=== PATIENT | male | born 1975 | race Caucasian/White ===

== ENCOUNTER 2025-02-09 16:23 | Emergency (ER) | payer SELFPAY ==
[~2025-02-09] VITALS: Ht 167.6 cm; Wt 91.0 kg
[2025-02-09 16:26] VITALS: O2SAT 98
[2025-02-09] MEDS: KETOROLAC 30MG/ML VIAL IV STA (18:22)
[2025-02-09 18:31] LABS: BASOPHILS % 0.6 % (0.0-2.0); DIFFERENTIAL COMMENT 0; EOSINOPHILS % 0.4 % (0.0-5.0); HEMATOCRIT. 21.7 % (42.0-52.0); MEAN CORPUSCULAR HEMOGLOBIN 27.5 pg (28.0-32.0); MEAN CORPUSCULAR HGB CONC 31.8 g/dL (31.0-37.0); MEAN CORPUSCULAR VOLUME 86.7 fL (80.0-94.0); MEAN PLATELET VOLUME 7.6 fl (7.4-10.4); MONOCYTES % 6.6 % (2.0-8.0); NEUTROPHILS % 79.4 % (40.0-76.0); PLATELET 109 x1000/uL (130-400); RED CELL DISTRIBUTION WIDTH 13.9 % (11.6-14.6); WHITE BLOOD COUNT 3.6 x1000/uL (4.5-11.0)
[2025-02-09 18:37] LABS: CHLORIDE 128 mEq/L (98-107); SODIUM 152 mEq/L (136-145)
[2025-02-09 18:38] LABS: CARBON DIOXIDE 14 mEq/L (21-32); HEMOGLOBIN. 6.9 g/dL (14.0-18.0)
[2025-02-09] MEDS: SODIUM CHLORIDE 0.9% 1,000 ML IV ONE (18:40)
[2025-02-09 18:43] LABS: CREATININE 0.2 mg/dL (0.6-1.3); GLUCOSE 71 mg/dL (70-105); UREA NITROGEN BLOOD < 5 mg/dL (9-23)
[2025-02-09 18:45] LABS: ALANINE AMINOTRANSFERASE 18 IU/L (10-49); ALBUMIN 1.7 g/dL (3.2-4.8); ASPARTATE AMINOTRANSFERASE 12 IU/L (<34); BILIRUBIN DIRECT < 0.1 mg/dL (<=3.0); BILIRUBIN TOTAL 0.2 mg/dL (0.1-1.0); PROTEIN TOTAL 2.8 g/dL (6.0-8.3)
[2025-02-09 18:47] LABS: TROPONIN I HIGH SENSITIVITY < 4 ng/L (3.0-53)
[2025-02-09 18:52] LABS: POTASSIUM 1.5 mEq/L (3.5-5.1)
[2025-02-09 18:53] LABS: CALCIUM 3.7 mg/dL (8.7-10.4)
[2025-02-09] MEDS ORDERED: MAGNESIUM 2 G PREMIX 50 ML IV ONE (19:15)
[2025-02-09] MEDS ORDERED: CALCIUM GLUCONATE 100MG/ML 10ML VIAL IV ONE (19:15)
[2025-02-09] MEDS ORDERED: KCL 20MEQ/100ML PREMIX 100 ML IV ONE (19:15)
[2025-02-09 20:10] VITALS: BP 167/106; PULSE 85; RESP 26; TEMP 36.8; O2SAT 97
[2025-02-09] MEDS ORDERED: IOHEXOL-300 100 ML BOTTLE ONE (23:42)
== END 2025-02-09 21:27 | disposition left against medical advice (07) ==
LOC: ER 16:23
DX: D64.9 Anemia, unspecified (principal); E83.51 Hypocalcemia; E87.6 Hypokalemia; E83.42 Hypomagnesemia; N28.89 Other specified disorders of kidney and ureter; V89.2XXA Person injured in unspecified motor-vehicle accident, traffic, initial encounter; Y93.89 Activity, other specified; Y92.89 Other specified places as the place of occurrence of the external cause; Y99.8 Other external cause status
CPT/HCPCS: 80076; 80048; 83690; 83735; 85025; 86850; 86900; 86901; 86920; 84484; 36415; 71045; 70450; 71260; 72125; 74177; 93005; 96361; 96374; 99285; Q9967; J0610; J1885; J3480; J7030; J3475